=== PATIENT | female | born 1985 | race African-American/Black ===

== ENCOUNTER 2017-06-02 11:57 | Emergency (ER) | payer SELFPAY ==
[~2017-06-02] VITALS: Ht 147.3 cm; Wt 61.0 kg
[~2017-06-02 11:57] MED LIST: AMOXICILLIN; IBUPROFEN
[2017-06-02 15:51] VITALS: BP 105/69
[2017-06-02] MEDS: PENICILLIN G BENZATHINE 1,200,000 UNITS/2ML SYR IM ONE (15:51)
[2017-06-02] MEDS: KETOROLAC 60MG/2ML VIAL IM ONE (15:51)
== END 2017-06-02 16:03 | disposition home or self-care (01) ==
LOC: ER 14:54
DX: J02.9 Acute pharyngitis, unspecified (principal)
CPT/HCPCS: 96372; 99284; J0561; J1885; Z7610

== ENCOUNTER 2018-01-09 20:28 | Emergency (ER) | payer MEDICAID, OTHER ==
[~2018-01-09] VITALS: Ht 147.3 cm; Wt 65.0 kg
[2018-01-09 21:59] VITALS: BP 138/91
[2018-01-10] MEDS ORDERED: IBUPROFEN 600MG TABLET PO ONE (01:00)
== END 2018-01-10 01:00 | disposition home or self-care (01) ==
LOC: ER 20:28
DX: J02.9 Acute pharyngitis, unspecified (principal)
CPT/HCPCS: 87070; 87430; 99283; 99284